=== PATIENT | female | born 1990 ===

== ENCOUNTER 2017-05-01 10:49 | Emergency (ER) | payer OTHER ==
[2017-05-01 10:56] VITALS: BMI 28.1
[2017-05-01 10:58] VITALS: O2SAT 97
--- NOTE | 2017-05-01 12:14 | ED PDOC ---
HPI: General Adult Time Seen by Provider: 05/01/17 11:00 Chief Complaint (Nursing): Fever Chief Complaint (Provider): Fever, Body Aches History Per: Patient History/Exam Limitations: no limitations Onset/Duration Of Symptoms: Days (x 2) Current Symptoms Are (Timing): Still Present Additional Complaint(s): Odette is a 27 y/o female with no past medical history who presents to the ED complaining of fever and body aches for the past 2 days. Patient also complains of headache, nausea, and dry cough. PMD: None Provided Past Medical History Reviewed: Historical Data, Nursing Documentation, Vital Signs Vital Signs: Last Vital Signs Temp 99.6 F 05/01/17 15:20 Pulse 122 H 05/01/17 12:10 Resp 20 05/01/17 12:10 BP 113/67 05/01/17 12:10 Pulse Ox 97 05/01/17 17:15 - Medical History PMH: No Chronic Diseases - Surgical History Surgical History: No Surg Hx - Family History Family History: States: Unknown Family Hx - Home Medications Home Medications: Ambulatory Orders Medication Instructions Recorded Oseltamivir [Tamiflu] 75 mg PO BID #10 cap 05/01/17 - Allergies Allergies/Adverse Reactions: Allergies Allergy/AdvReac Type Severity Reaction Status Date / Time No Known Allergies Allergy Verified 05/01/17 12:03 Review of Systems ROS Statement: Except As Marked, All Systems Reviewed And Found Negative Constitutional: Positive for: Fever, Other (body aches) Respiratory: Positive for: Cough (dry) Gastrointestinal: Positive for: Nausea Neurological: Positive for: Headache Physical Exam - Reviewed Nursing Documentation Reviewed: Yes Vital Signs Reviewed: Yes - Physical Exam Appears: Positive for: Well, No Acute Distress Head Exam: Positive for: ATRAUMATIC Skin: Positive for: Normal Color, Warm, Dry ENT: Positive for: Normal ENT Inspection Neck: Positive for: Normal, Painless ROM, Supple Cardiovascular/Chest: Positive for: Regular Rate, Rhythm. Negative for: Murmur Respiratory: Positive for: Normal Breath Sounds. Negative for: Respiratory Distress Gastrointestinal/Abdominal: Positive for: Normal Exam, Soft. Negative for: Tenderness Extremity: Positive for: Normal ROM. Negative for: Pedal Edema, Deformity Neurologic/Psych: Positive for: Alert, Oriented. Negative for: Motor/Sensory Deficits - ECG O2 Sat by Pulse Oximetry: 97 (RA) Pulse Ox Interpretation: Normal Medical Decision Making Medical Decision Making: Time: 12:03 Initial Impression: Rule out flu Initial Plan: --Flu Swab Flu Swab: positive pt feels better, vital stable Upon provider evaluation patient is medically stable, and requires no further treatment in the ED at this time. Patient will be discharged with Rx for Tamiflu. Counseling was provided and all questions were answered regarding diagnosis and need for follow up with PCP. There is agreement to discharge plan. Return if symptoms persist or worsen. Scribe Attestation: Documented by Jacob Hernandes and Eugenio Malin, acting as scribes for Cami Cano MD Provider Scribe Attestation: All medical record entries made by the Scribe were at my direction and personally dictated by me. I have reviewed the chart and agree that the record accurately reflects my personal performance of the history, physical exam, medical decision making, and the department course for this patient. I have also personally directed, reviewed, and agree with the discharge instructions and disposition. Disposition - Clinical Impression Clinical Impression: Flu-like symptoms - Patient ED Disposition Is Patient to be Admitted: No Counseled Patient/Family Regarding: Studies Performed, Diagnosis, Need For Followup - Disposition Referrals: [facility] [Outside] [facility] [Outside] Disposition: Routine/Home Disposition Time: 15:00 Condition: IMPROVED Additional Instructions: follow up with your primary doctor in 1-2 days for reevaluation return to the ED with any worsening or concerning symptoms Prescriptions: Oseltamivir [Tamiflu] 75 mg PO BID #10 cap Instructions: Flu, Adult (DC) Forms: [employer] (Nepalese) Print Language: BELIZEAN
[2017-05-01 12:15] VITALS: BP 113/67; PULSE 122; RESP 20
[2017-05-01 15:20] VITALS: TEMP 99.6
== END 2017-05-01 17:00 | disposition home or self-care (01) ==
LOC: H.ER 10:49
DX: J11.1 Influenza due to unidentified influenza virus with other respiratory manifestations (principal)

== ENCOUNTER 2017-05-04 11:00 | Emergency (ER) | payer OTHER ==
[2017-05-04 11:00] VITALS: BMI 28.1
[2017-05-04 11:44] VITALS: BP 106/76; PULSE 88; RESP 16; TEMP 97; O2SAT 99
--- NOTE | 2017-05-04 11:49 | ED PDOC ---
HPI: General Adult Time Seen by Provider: 05/04/17 11:22 Chief Complaint (Nursing): Flu-like Symptoms History Per: Patient History/Exam Limitations: no limitations Onset/Duration Of Symptoms: Days (1) Have you had recent travel within the past 21 days to any of the following countries: [place], [place], [place] or [place]?: No Current Symptoms Are (Timing): Better Severity: Mild Recently: Seen In ED Additional History Per: Patient Additional Complaint(s): Patient reports flu like symptoms for 3 days. Patient return only because she was told to follow up with her PCP. She was started on tamiflu. She understood she had to return to ED regardless of her conditions. She reports she is improved. She takes tamiflu. Past Medical History Reviewed: Historical Data, Nursing Documentation, Vital Signs Vital Signs: Last Vital Signs Temp 97 F L 05/04/17 11:42 Pulse 88 05/04/17 11:42 Resp 16 05/04/17 11:42 BP 106/76 05/04/17 11:42 Pulse Ox 99 05/04/17 11:42 - Medical History PMH: No Chronic Diseases - Surgical History Surgical History: No Surg Hx - Family History Family History: States: Unknown Family Hx - Home Medications Home Medications: Ambulatory Orders Medication Instructions Recorded Oseltamivir [Tamiflu] 75 mg PO BID #10 cap 05/01/17 - Allergies Allergies/Adverse Reactions: Allergies Allergy/AdvReac Type Severity Reaction Status Date / Time No Known Allergies Allergy Verified 05/01/17 12:03 Review of Systems ROS Statement: Except As Marked, All Systems Reviewed And Found Negative Physical Exam - Reviewed Nursing Documentation Reviewed: Yes Vital Signs Reviewed: Yes - Physical Exam Appears: Positive for: Well, Non-toxic, No Acute Distress Head Exam: Positive for: ATRAUMATIC Skin: Positive for: Warm Eye Exam: Positive for: EOMI Respiratory: Negative for: Respiratory Distress Extremity: Positive for: Normal ROM Neurologic/Psych: Positive for: Alert, Oriented - ECG O2 Sat by Pulse Oximetry: 99 Medical Decision Making Medical Decision Making: Impression Flu like symptoms At this time there are no indications for further testing or observation in ED. Patient to follow up with her PCP as needed. Disposition - Clinical Impression Clinical Impression: Influenza - Patient ED Disposition Is Patient to be Admitted: No Doctor Will See Patient In The: Office Counseled Patient/Family Regarding: Studies Performed, Diagnosis, Need For Followup - Disposition Referrals: [facility] [Outside] Disposition: Routine/Home Disposition Time: 11:51 Condition: GOOD Additional Instructions: Continue taking your medications. Follow up with your PCP within 1 week or earlier if worsened. Contina tomando tus medicamentos. Scout un seguimiento con canchola PCP dentro de 1 semana o antes si empeora. Instructions: Flu, Adult (DC) Print Language: GIBRALTAR[place]
== END 2017-05-04 12:01 | disposition home or self-care (01) ==
LOC: H.ER 11:00
DX: J11.1 Influenza due to unidentified influenza virus with other respiratory manifestations (principal)